=== PATIENT | female | born 1975 | race Caucasian/White ===

== ENCOUNTER 2022-06-19 14:35 | Emergency (ER) | payer OTHER ==
[2022-06-19] VITALS (14 sets, daily range): BP systolic 93–128; BP diastolic 66–93
[2022-06-19 15:46] LABS: BASO% 0.2 % (0-3); EOS% 0.8 % (0-8); HEMATOCRIT 34.9 % (37.0-47.0); HEMOGLOBIN 11.6 g/dl (12.0-16.0); IMMATURE GRANULOCYTES 0.8 % (0.0-5.0); LYMPH% 24.5 % (15-41); MEAN CELL VOLUME 96.4 fL CALC (80.0-100.0); MEAN CORPUSCULAR HGB CONC 33.2 g/dL CAL (32.0-36.0); MONO% 5.1 % (2-13); NEUT# 12.43 thou/uL (2.00-7.15); NEUT% 68.6 % (42-76); RED BLOOD COUNT 3.62 mill/uL (4.20-5.60); RED CELL DISTRI WIDTH 12.7 % (11.5-15.5)
[2022-06-19 15:55] LABS: ALBUMIN 4.3 g/dL (3.2-5.0); ALKALINE PHOSPHATASE 62 u/l (38-126); ANION GAP 15 (6-22 (CALC)); BILIRUBIN, TOTAL 0.3 mg/dL (0.02-1.3); BUN 15 mg/dL (7-17); BUN/CREATININE RATIO 17 (12-20 (CALC)); CARBON DIOXIDE 22 mmol/l (22-30); CHLORIDE 106 mmol/l (95-108); CREATININE 0.9 mg/dL (0.5-1.0); GFR FOR AFR.AMER. > 60 ML/MIN (>=60 (CALC)); GFR OTHER RACES > 60 ML/MIN (>=60 (CALC)); POTASSIUM 3.8 mmol/l (3.5-5.1); SGOT/AST 56 u/l (14-36); SODIUM 140 mmol/l (137-146); TOTAL PROTEIN 7.4 g/dL (6.3-8.2)
== END 2022-06-19 19:45 | disposition short-term general hospital (02) | DRG 999 ==
LOC: ED 14:35
PROVIDERS: Family Medicine
PROC: 2W3RX1Z Immobilization of Left Lower Leg using Splint (ICD-10-PCS; principal; 2022-06-19)
DX: S72.001A Fracture of unspecified part of neck of right femur, initial encounter for closed fracture (principal); S06.9X9A Unspecified intracranial injury with loss of consciousness of unspecified duration, initial encounter; S42.002A Fracture of unspecified part of left clavicle, initial encounter for closed fracture; S82.842A Displaced bimalleolar fracture of left lower leg, initial encounter for closed fracture; S10.93XA Contusion of unspecified part of neck, initial encounter; V28.59XA Other motorcycle passenger injured in noncollision transport accident in traffic accident, initial encounter
CPT/HCPCS: Q9967